=== PATIENT | male | born 1975 | race Caucasian/White ===

== ENCOUNTER → 2017-05-02 | Outpatient (REF) ==
[~2017-05-02] MED LIST: FLOMAX 0.40.4 MG/CAP PO; NO HOME MEDICATIONS; NORCO 325 MG-51 TAB PO; PERCOCET 5/321 UDTAB PO; ZOFRAN 4MG T4 MG/TAB PO
== END ==
LOC: WSOH 17:30
DX: Z02.89 Encounter for other administrative examinations (principal)

== ENCOUNTER 2018-12-27 08:45 | Emergency (ER) | payer BC ==
[~2018-12-27] VITALS: Ht 180.3 cm; Wt 91.8 kg
[2018-12-27] MEDS ORDERED: SKELAXIN 800MG800 MG PO (09:17)
[2018-12-27] MEDS ORDERED: ATHLETE'S FOOT1% TP (09:17)
[2018-12-27] MEDS ORDERED: MOBIC 7.5MG7.5 MG PO (09:17)
[2018-12-27 09:31] VITALS: BP 141/80; PULSE 90; TEMP 99.6
== END 2018-12-27 09:31 | disposition home or self-care (01) ==
LOC: COL.ER 08:45
DX: S33.9XXA Sprain of unspecified parts of lumbar spine and pelvis, initial encounter (principal); X50.0XXA Overexertion from strenuous movement or load, initial encounter

== ENCOUNTER 2019-06-13 15:14 | Emergency (ER) | payer OTHER ==
[~2019-06-13] VITALS: Ht 180.3 cm; Wt 93.6 kg
[~2019-06-13 15:14] MED LIST changes: +ATHLETE'S FOOT1% TP; +MOBIC 7.5MG7.5 MG PO; +SKELAXIN 800MG800 MG PO
[2019-06-13 15:36] VITALS: TEMP 98.6
[2019-06-13 16:52] LABS: COLLECTION METHOD CLEAN CATCH
[2019-06-13 17:02] LABS: MUCOUS Present /lpf; PH 6 (5-8); SQUAMOUS EPITHELIAL None Seen /hpf; URINE APPEARANCE Clear; URINE BACTERIA None Seen /hpf; URINE BILIRUBIN Negative (NEGATIVE); URINE BLOOD Negative (NEGATIVE); URINE COLOR Yellow; URINE GLUCOSE Negative (NEGATIVE); URINE KETONE Trace (NEGATIVE); URINE LEUKOCYTE ESTERASE Negative (NEGATIVE); URINE NITRATE Negative (NEGATIVE); URINE PROTEIN(semi-quant) Negative (NEGATIVE); URINE RBC 0-2 /hpf; URINE UROBILINOGEN Negative (NEGATIVE)
[2019-06-13 17:07] LABS: ALANINE AMINOTRANSFERASE 91 U/L (21-72); ALBUMIN 4.4 gm/dL (3.5-5.0); ALCOHOL(ethanol),MEDICAL 59 mg/dL; ALKALINE PHOSPHATASE 69 U/L (50-136); ANION GAP 10 mmol/L (7-16); AST,SGOT 85 U/L (15-37); BILIRUBIN,TOTAL 0.7 mg/dL (0.0-1.0); BLOOD UREA NITROGEN 17 mg/dL (9-20); CALCIUM 9.8 mg/dL (8.4-10.2); CARBON DIOXIDE 28 mmol/L (22-30); CHLORIDE 101 mmol/L (98-107); CREATININE, serum 1.62 (0.66-1.25); GLUCOSE 79 mg/dL (74-106); SALICYLATE 1.1 mg/dL; SODIUM 139 mmol/L (137-145); TOTAL PROTEIN 7.7 gm/dL (6.4-8.2)
[2019-06-13 17:09] LABS: ACETAMINOPHEN < 10 ug/mL (10-30); BASO # 0.1 (0.0-0.2); BASO % 0.8 % (0.0-2.0); EOS # 0.1 (0.0-0.7); GRAN # 4.4 (1.4-6.5); GRAN % 61.1 % (42.2-75.2); HEMATOCRIT 51.5 % (42.0-52.0); HEMOGLOBIN 16.6 g/dl (13.5-18.0); LYMPH # 1.9 (1.2-3.4); LYMPH % 26.1 % (20.0-51.0); MEAN CELL VOLUME 95 fl (80.0-100.0); MEAN CORPUSCULAR HEMOGLOBIN 31 pg (27.0-31.0); MEAN CORPUSCULAR HGB CONC 32 g/dl (33.0-37.0); MEAN PLATELET VOLUME 9.5 fl (7.4-10.4); MONO # 0.6 (0.1-0.6); MONO % 8.9 % (1.7-9.3); PLATELET COUNT 229 K/mm3 (130-400); RED BLOOD COUNT 5.44 M/mm3 (4.20-5.60); REDCELL DISTRIBUTION WIDTH-CV 15.8 % (11.5-14.5)
[2019-06-13 17:25] LABS: TRICYCLIC ANTIDEPRESS URINE NEGATIVE
[2019-06-14 00:30] VITALS: BP 156/83; PULSE 73
[2019-06-14] MEDS ORDERED: WELLBUTRIN XL300 M1 PO (14:01)
== END 2019-06-14 00:30 ==
LOC: COL.ER 15:14
PROVIDERS: Emergency Medicine
DX: R45.851 Suicidal ideations (principal); F32.9 Major depressive disorder, single episode, unspecified; F17.220 Nicotine dependence, chewing tobacco, uncomplicated

== ENCOUNTER 2020-07-09 05:53 | Inpatient (IN) | payer BC ==
[~2020-07-09] VITALS: Ht 180.3 cm; Wt 90.1 kg
[~2020-07-09 05:53] MED LIST changes: +WELLBUTRIN XL300 M1 PO
[2020-07-09 06:23] LABS: BASO # 0.1 (0.0-0.2); BASO % 0.8 % (0.0-2.0); EOS # 0.4 (0.0-0.7); EOS % 4.4 % (0-4.0); GRAN # 4.6 (1.4-6.5); GRAN % 58.2 % (42.2-75.2); HEMATOCRIT 48.1 % (42.0-52.0); LYMPH # 2.2 (1.2-3.4); LYMPH % 28.3 % (20.0-51.0); MEAN CELL VOLUME 93 fl (80.0-100.0); MEAN CORPUSCULAR HEMOGLOBIN 31 pg (27.0-31.0); MEAN CORPUSCULAR HGB CONC 33 g/dl (33.0-37.0); MEAN PLATELET VOLUME 9.2 fl (7.4-10.4); MONO # 0.6 (0.1-0.6); MONO % 7.9 % (1.7-9.3); PLATELET COUNT 162 K/mm3 (130-400); RED BLOOD COUNT 5.18 M/mm3 (4.20-5.60); REDCELL DISTRIBUTION WIDTH-CV 13.2 % (11.5-14.5)
[2020-07-09 06:33] LABS: ALBUMIN 4.4 gm/dL (3.5-5.0); BILIRUBIN,TOTAL 0.7 mg/dL (0.0-1.0); CALCIUM 9.3 mg/dL (8.4-10.2); CREATININE, serum 1.46 (0.66-1.25); POTASSIUM 4.2 mmol/L (3.4-5.0); TOTAL PROTEIN 7.3 gm/dL (6.4-8.2)
[2020-07-09 07:23] LABS: COLLECTION METHOD CLEAN CATCH
[2020-07-09 07:36] LABS: PH 5 (5-8); SQUAMOUS EPITHELIAL None Seen /hpf; URINE APPEARANCE Clear; URINE BACTERIA None Seen /hpf; URINE BILIRUBIN Negative (NEGATIVE); URINE BLOOD 1+ (NEGATIVE); URINE COLOR Yellow; URINE GLUCOSE Negative (NEGATIVE); URINE KETONE Negative (NEGATIVE); URINE LEUKOCYTE ESTERASE Negative (NEGATIVE); URINE NITRATE Negative (NEGATIVE); URINE PROTEIN(semi-quant) Negative (NEGATIVE); URINE RBC None Seen /hpf; URINE UROBILINOGEN Negative (NEGATIVE)
[2020-07-09 08:35] LABS: INR 1.1 (0.8-3.0); PROTHROMBIN TIME 11.9 SECONDS (9.7-12.8)
[2020-07-09 08:38] LABS: PARTIAL THROMBOPLASTIN TIME 32.9 SECONDS (26.0-37.0)
[2020-07-09 10:26] VITALS: BP 140/78; PULSE 60; TEMP 97.6
[2020-07-09 10:30] VITALS: BP 140/78; PULSE 60; TEMP 97.6
[2020-07-09 12:47] VITALS: BP 133/78; PULSE 62; TEMP 97.5
[2020-07-09 14:48] VITALS: BP 132/85; PULSE 67; TEMP 98
--- NOTE | 2020-07-09 18:30 | NUR ---
Heparin gtt turned off at 1545 for coag studies to be drawn. Lab attempted x2, unable to obtain blood. Will try again in a.m as lab will not go out until that time. Heparin gtt restarted at 16.5ml/hr.
[2020-07-09 19:05] VITALS: BP 125/80; PULSE 77; TEMP 98.5
--- NOTE | 2020-07-09 22:00 | NUR ---
Pt. sitting up at bedside. Pt. is A&OX3, assessment complete. IVs to lt. and rt. forearms patent, Fluids running to rt., Heparin gtt running to lt. patent. Pt. reports pain at a 6 on pain scale, gave pain meds per orders. Pt. denies further needs, call light within reach.
[2020-07-10] VITALS (7 sets, daily range): BP systolic 122–135; BP diastolic 68–82; PULSE 64–92; TEMP 97.9–98.6
[2020-07-10 05:38] LABS: BASO % 0.4 % (0.0-2.0); EOS # 0.2 (0.0-0.7); EOS % 1.6 % (0-4.0); GRAN # 7.6 (1.4-6.5); GRAN % 70.5 % (42.2-75.2); HEMATOCRIT 45.9 % (42.0-52.0); HEMOGLOBIN 15.1 g/dl (13.5-18.0); LYMPH % 19.1 % (20.0-51.0); MEAN CELL VOLUME 94 fl (80.0-100.0); MEAN CORPUSCULAR HEMOGLOBIN 31 pg (27.0-31.0); MEAN CORPUSCULAR HGB CONC 33 g/dl (33.0-37.0); MEAN PLATELET VOLUME 9.6 fl (7.4-10.4); MONO # 0.9 (0.1-0.6); MONO % 8.1 % (1.7-9.3); PLATELET COUNT 144 K/mm3 (130-400); REDCELL DISTRIBUTION WIDTH-CV 13.2 % (11.5-14.5)
[2020-07-10 05:47] LABS: CALCIUM 8.4 mg/dL (8.4-10.2); CREATININE, serum 1.23 (0.66-1.25); POTASSIUM 4.1 mmol/L (3.4-5.0)
--- NOTE | 2020-07-10 09:45 | NUR ---
Patient alert and oriented, answers questions appropriately. See assessment. Abdomen soft, non tender, non distended. Bowel sounds active x4 quads. +Flatus. States no bowel movement x4 days. No c/o pain or discomfort. No other c/o at this time.
--- NOTE | 2020-07-10 10:44 | NUR ---
Heparin gtt off at shift change this a.m. Restarted at 0700. Lab called at 0730, did not draw enough blood for labs and will need to redraw. Heparin gtt shut off at 0745, to be off for two hours prior to lab draw. Heparin gtt restarted at 1000.
--- NOTE | 2020-07-10 10:58 | NUR ---
SW met with patient to complete intake. Patient provides that he lives in [place] alone. Patient states that he does not utilize any DME and is independent with ADL's. Patient states that his PCP is Dr. Baptiste, pharmacy is [facility], and is able to afford his medications. Patient states that he does not have a DPOA at this time, but would like to appoint his son Mervin. Patient wanted SW to come back later to assist with completing DPOA, but wanted to talk to son first. Patient states that he has not concerns with DC with that time comes and stated he will not need any HH services. SW will continue to follow.
--- NOTE | 2020-07-10 20:30 | NUR ---
Pt. sitting up in bed at this time. Pt. is A&OX3, assessment complete. IV to lt. and rt. ac patent. IV fluids infusing to rt. AC, Heparin GTT to lt. ac. Pt. denies pain or other needs at this time. Call light within reach.
[2020-07-11 03:47] VITALS: BP 122/73; PULSE 67; TEMP 97.9
[2020-07-11 06:57] LABS: BASO % 0.4 % (0.0-2.0); EOS # 0.3 (0.0-0.7); EOS % 3.6 % (0-4.0); GRAN # 3.9 (1.4-6.5); GRAN % 55.5 % (42.2-75.2); HEMATOCRIT 44.6 % (42.0-52.0); HEMOGLOBIN 14.3 g/dl (13.5-18.0); LYMPH # 2.2 (1.2-3.4); LYMPH % 31.9 % (20.0-51.0); MEAN CELL VOLUME 94 fl (80.0-100.0); MEAN CORPUSCULAR HEMOGLOBIN 30 pg (27.0-31.0); MEAN CORPUSCULAR HGB CONC 32 g/dl (33.0-37.0); MEAN PLATELET VOLUME 10.3 fl (7.4-10.4); MONO # 0.6 (0.1-0.6); MONO % 8.3 % (1.7-9.3); PLATELET COUNT 157 K/mm3 (130-400); RED BLOOD COUNT 4.74 M/mm3 (4.20-5.60); REDCELL DISTRIBUTION WIDTH-CV 13.2 % (11.5-14.5)
[2020-07-11 07:10] LABS: CREATININE, serum 1.4 (0.66-1.25); POTASSIUM 4.1 mmol/L (3.4-5.0)
[2020-07-11 07:34] VITALS: BP 134/80; PULSE 64; TEMP 97.9
--- NOTE | 2020-07-11 08:00 | NUR ---
Patient resting in bed at this time. Patient rouses easily and is alert and oriented while awake. Hep Xa running at 16.5 per protocol. Patient denies pain or needs at this time, call light within reach.
[2020-07-11] MEDS ORDERED: NORCO 325 MG-51 TAB PO (09:11)
[2020-07-11] MEDS ORDERED: ZOFRAN 4MG T4 MG/TAB PO (09:12)
[2020-07-11] MEDS ORDERED: ELIQUIS 5MG PO ×2 (09:14→10:28)
[2020-07-11] MEDS ORDERED: XARELTO15 MG PO (09:22)
--- NOTE | 2020-07-11 10:30 | NUR ---
Discharge teaching completed. Discussed follow up appointments, discharge instructions, discharge medications. Patient questions asked and answered. Patient denied further questions or needs. Two IV sites discontinued, catheters intact, hemostasis achieved. Patient escorted to ED entrance where he entered a private vehicle.
[2020-07-11 16:05] LABS: COAG INR 1.4 (0.9-1.2)
[2020-07-11 19:38] LABS: FACTOR V LEIDEN MUTATION B Negative (Negative); PARTIAL THROMBLASTIN TIME 35.4 seconds (25.0-35.0); PT G20210A MUTATION B Negative (Negative)
[2020-07-12 09:32] LABS: ANTI-THROMBIN III 54 % (72-128)
[2020-07-12 09:36] LABS: PROTEIN C ACTIVITY 40 % (70-150)
[2020-07-12 14:40] LABS: LUPUS ANTICOAGULANT PT 15.2 sec (())
[2020-07-18 10:09] LABS: LUPUS ANTICOAGULANT INR SEE PCI
[2020-07-18 10:10] LABS: HEXAGONAL PHOSPHOLIPID NEUTRAL SEE PCI; INHIBITOR SCREEN INTERPRETATN SEE PCI; LUPUS ANTICOAG DRVVT CONFIRM SEE PCI; LUPUS DRVVT RATIO SEE PCI; PT INCUBATED 1:1 MIXING STUDY SEE PCI; PT ROOM TEMP 1:1 MIXING STUDY SEE PCI; PTT INCUBATED 1:1 MIXING STUDY SEE PCI; PTT ROOM TEMP 1:1 MIXING STUDY SEE PCI; PTT-LA INCUBATED 1:1 MIX STUDY SEE PCI
== END 2020-07-11 10:30 | disposition home or self-care (01) | DRG 442 ==
LOC: COL.ER 05:53 → SURG 09:19
PROVIDERS: Emergency Medicine; Physician Assistant; Student in an Organized Health Care Education/Training Program; ADMIT Internal Medicine
DX: I81 Portal vein thrombosis (principal); K55.8 Other vascular disorders of intestine; N18.9 Chronic kidney disease, unspecified; R73.9 Hyperglycemia, unspecified; K21.9 Gastro-esophageal reflux disease without esophagitis; K29.70 Gastritis, unspecified, without bleeding; N20.0 Calculus of kidney; N28.1 Cyst of kidney, acquired; K59.00 Constipation, unspecified; F32.9 Major depressive disorder, single episode, unspecified; Z88.1 Allergy status to other antibiotic agents
CPT/HCPCS: 99222-AI; 99232-AI; 99239; J1170; J1644; J2405; J7030; Q9967

== ENCOUNTER 2022-03-26 12:11 | Inpatient (IN) | payer BC ==
[~2022-03-26] VITALS: Ht 181 cm; Wt 96.0 kg
[2022-03-26] VITALS (431 sets, daily range): BP systolic 114–135; BP diastolic 79–97; PULSE 57–92; TEMP 97.5–98.9; O2SAT 90–99
[~2022-03-26 12:11] MED LIST changes: +ELIQUIS 5MG PO; +XARELTO15 MG PO
[2022-03-26 12:32] LABS: BASO % 0.5 % (0.0-2.0); EOS # 0.1 K/mm3 (0.0-0.7); EOS % 0.8 % (0.0-4.0); GRAN # 5.6 K/mm3 (1.4-6.5); GRAN % 72.7 % (42.2-75.2); HEMATOCRIT 51.9 % (42.0-52.0); HEMOGLOBIN 17.4 g/dl (13.5-18.0); LYMPH # 1.3 K/mm3 (1.2-3.4); LYMPH % 16.8 % (20.0-51.0); MEAN CELL VOLUME 94 fl (80.0-100.0); MEAN CORPUSCULAR HEMOGLOBIN 32 pg (27-31); MEAN CORPUSCULAR HGB CONC 34 g/dl (33.0-37.0); MEAN PLATELET VOLUME 9.2 fl (7.4-10.4); MONO # 0.7 K/mm3 (0.1-0.6); MONO % 8.7 % (1.7-9.3); PLATELET COUNT 178 K/mm3 (130-400); RED BLOOD COUNT 5.51 M/mm3 (4.20-5.60); REDCELL DISTRIBUTION WIDTH-CV 13.9 % (11.5-14.5)
[2022-03-26 12:53] LABS: BILIRUBIN,TOTAL 0.7 mg/dL (0.2-1.2); CALCIUM 9.9 mg/dL (8.4-10.2); CREATININE, serum 1.83 mg/dL (0.72-1.25); POTASSIUM 4.6 mmol/L (3.5-4.5); TOTAL PROTEIN 7.4 gm/dL (6.2-8.1)
[2022-03-26 13:00] LABS: TROPONIN-I 0.753 ng/mL (0.00-0.033)
[2022-03-26 13:03] LABS: PROTHROMBIN TIME 11.6 SECONDS (9.7-12.8)
[2022-03-26 13:06] LABS: PARTIAL THROMBOPLASTIN TIME 28.3 SECONDS (26.0-37.0)
--- NOTE | 2022-03-26 15:15 | NUR ---
See merge for all medication, assessment, intervention, and vital sign times.
[2022-03-26] MEDS ORDERED: XYOSTED50 MG/0.5 (16:57)
--- NOTE | 2022-03-26 19:43 | NUR ---
1630: PT ARRIVED FROM [employer] TO ROOM. REPORT RECEIVED AT BEDSIDE. PT A&O, DENIES CHEST PAIN AT THIS TIME. NITRO GTT RUNNING PER ORDERS. RT RADIAL SITE W/ 12ML AIR, PULSE AND CIRRCULLATION WNL. NO FURTHER COCNERNS NOTED.
[2022-03-27] VITALS (472 sets, daily range): BP systolic 113–125; BP diastolic 77–104; PULSE 56–65; TEMP 98–98.1; O2SAT 80–100
--- NOTE | 2022-03-27 04:54 | NUR ---
BAND REMOVED AT 0100, NO BRUISES, EDEMA OR BLEEDING IN AREA
[2022-03-27 06:37] LABS: BASO # 0.1 K/mm3 (0.0-0.2); BASO % 0.8 % (0.0-2.0); EOS # 0.2 K/mm3 (0.0-0.7); EOS % 2.7 % (0.0-4.0); GRAN # 3.7 K/mm3 (1.4-6.5); GRAN % 58.8 % (42.2-75.2); HEMATOCRIT 49.9 % (42.0-52.0); HEMOGLOBIN 16.3 g/dl (13.5-18.0); LYMPH # 1.5 K/mm3 (1.2-3.4); LYMPH % 24.4 % (20.0-51.0); MEAN CELL VOLUME 95 fl (80.0-100.0); MEAN CORPUSCULAR HEMOGLOBIN 31 pg (27-31); MEAN CORPUSCULAR HGB CONC 33 g/dl (33.0-37.0); MEAN PLATELET VOLUME 9.5 fl (7.4-10.4); MONO # 0.8 K/mm3 (0.1-0.6); MONO % 12.8 % (1.7-9.3); PLATELET COUNT 156 K/mm3 (130-400); RED BLOOD COUNT 5.24 M/mm3 (4.20-5.60)
[2022-03-27 06:48] LABS: CALCIUM 8.7 mg/dL (8.4-10.2); CREATININE, serum 1.58 mg/dL (0.72-1.25); MAGNESIUM 1.9 mg/dL (1.6-2.6); POTASSIUM 3.8 mmol/L (3.5-4.5)
[2022-03-27] MEDS ORDERED: TOPROL XL 25MG25 MG PO (11:12)
[2022-03-27] MEDS ORDERED: LIPITOR 80MG80 MG PO (11:12)
[2022-03-27] MEDS ORDERED: PLAVIX 75MG TAB75 MG PO (11:12)
[2022-03-27] MEDS ORDERED: NITROSTAT0.3 MG SL (11:13)
[2022-03-27] MEDS ORDERED: ASPIRIN 81M81 MG/TA2 PO (11:13)
--- NOTE | 2022-03-27 11:29 | NUR ---
IV AND TELE DC'D. DISCHARGE INSTRUCTIONS DISCUSSED WITH PT. DISCUSSED NEW MEDS AND NEED TO BE PICKED UP AT PHARMACY. ALL QUESTIONS ANSWERED. PT WALKED OUT FOR DISCHARGE.
--- NOTE | 2022-03-27 11:41 | NUR ---
Reviewed discharge instructions for heart catheterization. Cleaning site with mild soap and water, pat dry. Discussed monitoring for redness, hot to touch, inflammation, or temperature >100.4. Discussed when to contact the physician for signs of symptoms of complications or VT. Also reviewed risk factors for heart disease. Covered applicable modifiable risk factors including the following: tobacco cessation, HTN, hyperlipidemia, diabetes, overweight/obesity, sedentary lifestyle, and stress/depression. Patient verbalized understanding. Referral sent to [facility] with patients permission. SCHEDULED 04/06 AT 12:45PM.
== END 2022-03-27 11:34 | disposition home or self-care (01) | DRG 251 ==
LOC: COL.ER 12:11 → ICU 14:12
PROVIDERS: Emergency Medicine; ADMIT Internal Medicine
PROC: 02703ZZ Dilation of Coronary Artery, One Artery, Percutaneous Approach (ICD-10-PCS; principal; 2022-03-26)
PROC: 4A023N7 Measurement of Cardiac Sampling and Pressure, Left Heart, Percutaneous Approach (ICD-10-PCS; 2022-03-27)
PROC: B2111ZZ Fluoroscopy of Multiple Coronary Arteries using Low Osmolar Contrast (ICD-10-PCS; 2022-03-27)
PROC: 4A033BC Measurement of Arterial Pressure, Coronary, Percutaneous Approach (ICD-10-PCS; 2022-03-27)
DX: I21.4 Non-ST elevation (NSTEMI) myocardial infarction (principal); F32.A Depression, unspecified; Z88.1 Allergy status to other antibiotic agents; Z72.89 Other problems related to lifestyle; Z87.442 Personal history of urinary calculi; Z87.19 Personal history of other diseases of the digestive system; Z23 Encounter for immunization
CPT/HCPCS: C1725; C1769; C1887; J0583; J1644; J2250